=== PATIENT | male | born 1945 | race Caucasian/White ===

== ENCOUNTER → 2017-09-30 | Outpatient (CLI) | payer MEDICARE, OTHER ==
[~2017-09-30] MED LIST: ASPI-183 PO; ATOR40TA16 PO; LEXA20TA PO; LISI10TA3 PO
[2017-09-30 10:34] LABS: HEMATOCRIT 44.5 % (39.0-51.0); MEAN CELL VOLUME 93.6 FL (80.0-100.0); MEAN CORPUSCULAR HGB CONC 34.2 % (32.0-36.0); PLATELET COUNT 250 TH/MM3 (150-450); RED BLOOD COUNT 4.76 MIL/MM3 (4.50-5.90); RED CELL DISTRIBUTION WIDTH 12.9 % (11.6-17.2); REVIEW FLAG FINAL; WHITE BLOOD COUNT 5.9 TH/MM3 (4.0-11.0)
[2017-09-30 10:42] LABS: APTT (PATIENT) 27.1 SEC (24.3-30.1); PROTHROMBIN TIME - PATIENT 10.1 SEC (9.8-11.6)
[2017-09-30 10:59] LABS: POTASSIUM 5.1 MEQ/L (3.5-5.1)
--- NOTE | 2017-10-01 13:40 | EKG ---
Date Performed: 09/30/2017 Time Performed: 10:09:35 PTAGE: 72 years EKG: MARKED SINUS BRADYCARDIA MINOR NONSPECIFIC ST WAVE CHANGE NO PREVIOUS TRACING DOCTOR: Steven Alva Interpretating Date/Time 10/01/2017 13:38:12
== END ==
LOC: CPRE 09:37
PROVIDERS: ATTEND Internal Medicine
DX: Z01.810 Encounter for preprocedural cardiovascular examination (principal); Z01.812 Encounter for preprocedural laboratory examination; R04.2 Hemoptysis; J18.9 Pneumonia, unspecified organism
CPT/HCPCS: 36415; 80048; 85027; 85610; 85730; 93005

== ENCOUNTER 2017-10-04 13:06 | Day surgery (SDC) | payer MEDICARE, OTHER ==
--- NOTE | 2017-09-30 08:12 | MB ---
cc: Saul COTO MD,JUAN DIEGO DATE OF CONSULTATION 09/29/[address] 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 Symptoms persisted, however over the weekend he developed a chill and fever. A CT scan was done which revealed a left lower lobe infiltrate. He then developed hemoptysis one half to one teaspoon of blood mixed with sputum over the course of the next seven to ten days. He was placed on Augmentin 500 t.i.d. which he just completed today and he is feeling much better. The hemoptysis recurred though up until yesterday. He was a former smoker of one to one packs per day for about 30 pack-years, quit in 1981. He has had no previous significant pulmonary disease, although he did have an episode similar to this two years ago and several months after the event itself, had a CT scan. No infiltrates were noted at that time, but he had several small nodules. That was in 2014 and he has had no follow-up scan until the one September 19. There are some granulomas found on the most recent scan and the comment by the radiologist is they are unchanged. He denies shortness of breath. He had pulmonary functions about two years ago as well which revealed mild COPD. He has not required any treatment for that. He leads a very active lifestyle, exercises regularly, actually used to run marathons. He has had no chest pain. No recurrent fever. He has no abdominal complaints in particular reflux. No recent change in bowel habits, only recent travel was that trip. No chronic edema. No history of thromboembolic disease. PAST MEDICAL HISTORY 1. Bypass in 2003. He is followed intermittently by Dr. Damian. He has had no recent follow-up, but no recent symptoms of concern either. 2. He has also had a history of depression most of his adult life treated. MEDICATIONS 1. Statin 2. Lisinopril 3. 325 mg Aspirin 4. Lexapro 5. Recent Augmentin. ALLERGIES None known. FAMILY HISTORY Father of alcoholism and hepatoma. Mother of sudden in her 80s. Two sons in good health. SOCIAL HISTORY Originally from [place]. He has lived in this area for about seven years. 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 Smoking noted. No excessive alcohol. living with his and no animal exposures. REVIEW OF SYSTEMS Weight has been stable. Appetite is fine. No history of reflux disease. He has had a cataract removed on the right. Cardiac noted above, currently no orthopnea, PND, no palpitations or anginal chest pain. He does have chronic post nasal drip for many years. No severe musculoskeletal complaints. PHYSICAL EXAMINATION VITAL SIGNS: 120/66, temps 96, pulse is 40-50 regular. He says that is his normal pulse, saturation 98% room air. HEAD, EYES, EARS, NOSE, AND THROAT: Sclerae anicteric. Pharynx is clear. NECK: Neck veins are flat. CHEST: Clear. No adenopathy in the neck or supraclavicular region. HEART: Slow heart rate, but regular. No harsh murmur. No audible S3. ABDOMEN: Soft. No peripheral edema or cyanosis. Chest CT is reviewed with the patient. He has a left lower lobe infiltrate, possibly some mild lower lobe bronchiectasis on the left. This is new when compared to the films they have in 2015. No mass or obvious atelectasis is noted. Stable noncalcified nodule in the right midlung unchanged. Dr. Srivastava presents with what sounds like an infectious process in the left lower lobe. However, he did have persistent hemoptysis over the course of 7-10 days and in light of the prior smoking history, it would be advisable to bronchoscope him to ensure that there is no underlying malignancy. He understands this and as a physician understands the procedure, risks and benefits and is agreeable to proceed. I have asked him to discontinue his 325 mg aspirin which may be aggravating the bleeding and should be stopped prior to his procedure. If symptoms were worsen prior to the scheduled procedure next week, he will call. Further diagnostic and/or therapeutic intervention will depend on the results of this study in his ongoing clinical course. He has no specific cardiovascular symptoms at present and assuming that his EKG is okay, I do not think we need any further clearance for this procedure. R. MD BIJAN Amado/RAMON /11:01 AM /8:09 AM
[~2017-10-04] VITALS: Ht 177.8 cm; Wt 72.7 kg
[~2017-10-04 13:06] MED LIST changes: +GLYCOPYRROLATE 0.4 MG/2 ML VIAL IV ONE; +LIDOCAINE HCL 1% PF 5 ML SYRINGE OTHER ONE; +NEOSTIGMINE 5 MG/5 ML SYRINGE IV PUSH ONE; +PROPOFOL 200 MG/20 ML AMP IV ONE; +ROCURONIUM INJ 50 MG/5 ML SYRINGE IV PUSH ONE; +SODIUM CHLORID 0.9% 500 ML INJ 500 ML IV ONE; +ePHEDrine/NS 25 MG/5 ML SYRINGE IV ONE
[2017-10-04 13:26] VITALS: BP 155/103; PULSE 44; RESP 20; TEMP 97.3; O2SAT 94
[2017-10-04] MEDS ORDERED: RESP: ALBUTEROL CONC 2.5 MG/0.5 ML NEB ONE (15:08)
[2017-10-04] MEDS ORDERED: RESP: LIDOCAINE HCL 4% PF 5 ML NEB ONE (15:09)
[2017-10-04] MEDS ORDERED: RESP: ALBUTEROL 2.5 MG/IPRATROPIUM 0.5 MG NEB (PRN) NEB (16:30)
[2017-10-04] MEDS ORDERED: DO NOT ADM ANY ANTICOAGULANT DRUGS PRN (16:39)
[2017-10-04 18:20] VITALS: BP 133/66; PULSE 46; RESP 16; TEMP 97.2; O2SAT 95
--- NOTE | 2017-10-04 20:53 | MP ---
cc: Saul COTO DATE OF SURGERY: 10/04/2017 PROCEDURE: Bronchoscopy ANESTHESIA: General. DESCRIPTION OF PROCEDURE: After informed consent was obtained the patient underwent diagnostic bronchoscopy with general anesthesia. Examination of the mid to distal trachea revealed copious purulent secretions scattered throughout. These were aspirated. Examination of the right main stem bronchus revealed minimal scattered secretions throughout right upper, middle and lower lobes. These were all aspirated and lavaged until clear and submitted for cultures. Examination of the left main stem bronchus revealed more copious secretions and this area was cleansed and lavaged extensively down to the left upper lobe and lower lobes. All of this was submitted for culture. Once the secretions were cleared, I carefully examined the left upper lobe, lingula, lower lobes and there was no endobronchial pathology. No obvious bleeding source. The left lower lobe was somewhat edematous. Brushings were taken for cytology from the left lower lobe and additional washings were obtained for cytology as well. In summary, this is basically a normal endoscopic exam, although there is some edema in the left lower lobe but there was no obvious endobronchial lesion as a source of his hemoptysis. However, there were extensive purulent secretions particularly from the left lower lobe and these were all aspirated until clear. Specimens are submitted for cytology and cultures including AFB and fungus. He tolerated the procedure well and is being planned for transfer to recovery at this point. MD BIJAN Kate/RD /4:30 PM /8:45 PM
== END 2017-10-04 16:35 | disposition home or self-care (01) ==
LOC: HROP 13:06 → HRIP 13:09 → HROP 16:35
PROVIDERS: ATTEND Internal Medicine
DX: R04.2 Hemoptysis (principal); J44.9 Chronic obstructive pulmonary disease, unspecified; Z95.1 Presence of aortocoronary bypass graft; Z87.891 Personal history of nicotine dependence
CPT/HCPCS: 00520; 31623; 87015; 87070; 87102; 87116; 87205; 87206; 88112; 88305; 94664; J2710; J3010; J7040; J7611

== ENCOUNTER → 2017-11-22 | Day surgery (SDC) | payer MEDICARE, OTHER ==
[~2017-11-22] MED LIST changes: +DEXAMETHASONE SOD PHOS 4 MG/ML VIAL ONE; +EPINEPHrine HCL (1:1000) 1 MG/ML VIAL ONE; -GLYCOPYRROLATE 0.4 MG/2 ML VIAL IV ONE; +IBUPROFEN 200 MG TAB ONE; +LACTATED RINGER'S 1000 ML INJ 0 ML ONE; -LIDOCAINE HCL 1% PF 5 ML SYRINGE OTHER ONE; +MIDAZOLAM HCL 2 MG/2 ML VIAL ONE; +MOXIFLOXACIN 0.5% OPHT SOLN 3 ML BTL ONE; -NEOSTIGMINE 5 MG/5 ML SYRINGE IV PUSH ONE; +ONDANSETRON HCL 4 MG/2 ML VIAL IV PUSH ONE; +PHENYLEPHRINE HCL 10% OPTH SOLN 5 ML BTL ONE; -ROCURONIUM INJ 50 MG/5 ML SYRINGE IV PUSH ONE; -SODIUM CHLORID 0.9% 500 ML INJ 500 ML IV ONE; +SODIUM CHLORIDE 0.9% INJ 10 ML ONE; +TETRACAINE 0.5% OPTH SOLN 15 ML BTL ONE; +TOBRAMYCIN/DEXAMETHASONE OPTH OINT 3.5 GM TUBE ONE; +TRIAMCINOLONE ACETONIDE 40 MG/ML VIAL ONE; +ceFAZolin INJ 1,000 MG VIAL ONE; -ePHEDrine/NS 25 MG/5 ML SYRINGE IV ONE; +prednisoLONE ACETATE 1% OPHT SUSP 5 ML BTL ONE
--- NOTE | 2017-11-25 08:17 | MP ---
cc: DAVION MILLS MD DATE OF SURGERY 11/24/2017 PREOPERATIVE DIAGNOSIS Dense vitreous debris, posterior vitreous detachment right eye. POSTOPERATIVE DIAGNOSIS Dense vitreous debris, posterior vitreous detachment right eye. PROCEDURE Pars plana vitrectomy, endolaser, right eye. ANESTHESIA Dr. Hernandez, general BLOOD LOSS Less than 1 cc COMPLICATIONS None INDICATIONS FOR PROCEDURE This patient developed significant vitreous debris along with posterior vitreous detachment of his right eye. The patient had trouble with daily function including driving and he elected for surgical repair. The patient understands the risks, benefits and alternatives and wishes to proceed. PROCEDURE NOTE Informed form consent was obtained, the patient was brought to the operating room, general anesthesia was established. The right eye was prepped and draped in a sterile fashion with Betadine in the conjunctival fornix. A three port pars plana vitrectomy was established with a self-retaining infusion cannula. Core vitreous was evacuated and vitreous traction of peripheral retinal was relieved with careful vitrectomy along with scleral depression. An area of inferior retinal weakening was seen and treated with endolaser. Scleral depression examination revealed no untreated retinal holes, tears or detachments. Trocars were removed and the sclerotomy was closed. A subconjunctival injection of Ancef and dexamethasone were given. The eye was patched with Tobramycin ointment. The patient brought to the recovery room in stable condition and continued followup At the [facility] for his postoperative care. MD CHARISSE Villanueva/RAMON /5:31 PM /7:53 AM
== END | disposition home or self-care (01) ==
LOC: ESDC 07:30
PROVIDERS: ATTEND Ophthalmology
DX: H43.811 Vitreous degeneration, right eye (principal)
CPT/HCPCS: 00145; 67108; J0171; J0690; J1100; J2250; J2405; J3010; J3301; J7120